=== PATIENT | male | born 2000 | race Caucasian/White ===

== ENCOUNTER 2021-02-20 14:54 | Emergency (ER) | payer BC ==
[2021-02-20] MEDS ORDERED: Sodium Chloride 0.9% 1000 ML 1,000 ML IV STA (15:25)
[2021-02-20] MEDS ORDERED: Sodium Chloride 0.9% 1000 ML 1,000 ML ONE (15:29)
[2021-02-20 15:39] LABS: Absolute Neutrophil Ct (ANC) 3.22 (1.4-6.9); BASOPHIL % 0.2 % (0.0-0.4); Basophil (Absolute #) 0.01 (0-0.4); Eosinophil (Absolute #) 0.06 (0-0.5); Hematocrit 40.8 % (42-50); Hemoglobin 13.3 gm/dl (12.5-18.0); Lymphocyte (Absolute #) 1.86 (1.0-4.6); Lymphocytes % 32.5 % (24.0-44.0); Mean Cell Volume 90.3 fl (78-100); Mean Corpuscular Hemoglobin 29.4 pg (26-32); Mean Corpuscular Hgb Concent. 32.6 g/dl (32-36); Monocyte (Absolute #) 0.57 (0.0-1.3); Neutrophil % 56.3 % (36.0-66.0); Platelet Count 174 K/mm3 (150-450); Red Blood Count 4.52 M/mm3 (4.1-5.6); Red Cell Distribution Width 12.9 % (11.5-14.0); White Blood Count 5.7 K/mm3 (4.0-10.5)
[2021-02-20 15:58] LABS: ALBUMIN 4.8 g/dL (3.5-5.0); ALKALINE PHOSPHATASE 41 U/L (38-126); ANION GAP 14.4 MEQ/L (5-15); BLOOD UREA NITROGEN 17 mg/dL (9-20); CHLORIDE 101 mmol/L (98-107); Calcium 9.5 mg/dL (8.4-10.2); Carbon Dioxide 27 mmol/L (22-30); Creatinine 1 1.14 mg/dL (0.66-1.25); EST GLOMERULAR FILTRATION RATE > 60.0 ML/MIN; Glucose 97 mg/dL (74-106); MAGNESIUM 2.1 mg/dL (1.6-2.3); Potassium 4.1 mmol/L (3.5-5.1); SGOT/AST 28 U/L (17-59); SGPT/ALT 16 U/L (0-50); SODIUM 138 mmol/L (137-145); Total Protein 7.1 g/dL (6.3-8.2)
--- NOTE | 2021-02-20 16:28 | XRAY ---
Indication: Lightheadedness. Comparison: October 12, 2015. Portable chest again demonstrates normal heart, lungs, and bony thorax.
--- NOTE | 2021-02-20 16:33 | ERPHSYRPT ---
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 states he has passed out once before in high school and it felt like this episode today. denies hx seizures. rates 1/10 CONNER now. reports he became sweaty and light headed at work, attempted to go inside and sit down, but began to black out and sat down on the ground. denies fall, hitting head, or LOC. Physician History: 20 years old healthy male presented in the ER with near syncope episode and mild headache. 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 Denies any chest pain palpitations or shortness of breath before or after. Denies any focal numbness tingling or weakness. Patient reports 1/10 minimal headache and feeling of mild generalized weakness and fatigue. Reports keeping up with hydration. Does report having similar episode few years ago. Denies any drug use. No sick contact. No vomiting or diarrhea reported Timing/Duration: today, resolved prior to arrival, improved Severity: moderate Modifying Factors: Improves With: rest Associated Symptoms: headaches Allergies/Adverse Reactions: No Known Drug Allergies Allergy (Unverified 02/20/21 15:09) Home Medications: No Reportable Medications [No Reported Medications] 02/20/21 [History] Hx Tetanus, Diphtheria Vaccination/Date Given: Yes Hx Influenza Vaccination/Date Given: Yes Hx Pneumococcal Vaccination/Date Given: No Immunizations Up to Date: Yes Travel Risk - International Travel Have you traveled outside of the country in past 3 weeks: No - Coronavirus Screening Are you exhibiting any of the following symptoms?: Yes Symptoms: Headaches/Body Aches/Fatigue Close contact with a COVID-19 positive Pt in past 14-21 Days: No - Vaccine Status Have you recieved a Covid-19 vaccination: No - Review of Systems Constitutional: Fatigue, Weakness Eyes: No Symptoms Ears, Nose, & Throat: No Symptoms Respiratory: No Symptoms Cardiac: No Symptoms Abdominal/Gastrointestinal: No Symptoms Genitourinary Symptoms: No Symptoms Musculoskeletal: No Symptoms Skin: No Symptoms Neurological: Dizziness, Headache Psychological: No Symptoms Endocrine: No Symptoms Hematologic/Lymphatic: No Symptoms Immunological/Allergic: No Symptoms - Past Medical History Pertinent Past Medical History: No Other Medical History: heart murmur as child - Past Surgical History Past Surgical History: No - Social History Smoking Status: Never smoker Exposure to second hand smoke: No Drug Use: none Patient Lives Alone: No - Nursing Vital Signs Nursing Vital Signs: Initial Vital Signs Temperature 97.0 F 02/20/21 15:02 Pulse Rate 79 02/20/21 15:02 Respiratory Rate 18 02/20/21 15:02 Blood Pressure 118/76 02/20/21 15:02 O2 Sat by Pulse Oximetry 98 02/20/21 15:02 Pain Scale Pain Intensity 0 - Physical Exam General Appearance: no apparent distress, alert Eye Exam: PERRL/EOMI, eyes nml inspection Ears, Nose, Throat Exam: normal ENT inspection, TMs normal, pharynx normal Neck Exam: normal inspection, non-tender, supple, full range of motion Respiratory Exam: normal breath sounds, lungs clear Cardiovascular Exam: regular rate/rhythm, normal heart sounds Gastrointestinal/Abdomen Exam: soft, normal bowel sounds, No tenderness Back Exam: normal inspection, normal range of motion, No CVA tenderness Extremity Exam: normal inspection, normal range of motion Neurologic Exam: alert, oriented x 3, cooperative, 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 tested, normal mood/affect, nml cerebellar function, nml station & gait, sensation nml, No motor deficits, No sensory deficit Skin Exam: normal color SpO2 Interpretation: normal SpO2: 99 O2 Delivery: Room Air - Course EKG Interpreted by Me: RATE (69), Sinus Rhythm, NORMAL AXIS ( okay alright hello yeah), NORMAL INTERVALS, NORMAL QRS Ordered Tests: Medication Summary Discontinued Medications Generic Name Dose Route Start Last Admin Trade Name Freq PRN Reason Stop Dose Admin Sodium Chloride 1,000 mls @ 999 mls/hr 02/20/21 15:25 02/20/21 16:33 Sodium Chloride 0.9% 1000 Ml IV 02/20/21 16:25 Infused .Q1H1M STA Infusion Sodium Chloride Confirm 02/20/21 15:29 Sodium Chloride 0.9% 1000 Ml Administered 02/20/21 15:30 Dose 1,000 mls @ ud .ROUTE .STK-MED ONE Lab/Rad Data: Laboratory Result Diagrams 02/20/21 15:15 02/20/21 15:15 Laboratory Results 02/20/21 02/20/21 02/20/21 Range/Units 15:33 15:17 15:15 WBC (4.0-10.5) K/mm3 RBC (4.1-5.6) M/mm3 Hgb (12.5-18.0) gm/dl Hct (42-50) % MCV (78-100) fl MCH (26-32) pg MCHC (32-36) g/dl RDW (11.5-14.0) % Plt Count (150-450) K/mm3 MPV (7.5-11.0) fl Gran % (36.0-66.0) % Eos # (Auto) (0-0.5) Absolute Lymphs (auto) (1.0-4.6) Absolute Monos (auto) (0.0-1.3) Lymphocytes % (24.0-44.0) % Monocytes % (0.0-12.0) % Eosinophils % (0.00-5.0) % Basophils % (0.0-0.4) % Absolute Granulocytes (1.4-6.9) Basophils # (0-0.4) Sodium (137-145) mmol/L Potassium (3.5-5.1) mmol/L Chloride (98-107) mmol/L Carbon Dioxide (22-30) mmol/L Anion Gap (5-15) MEQ/L BUN (9-20) mg/dL Creatinine (0.66-1.25) mg/dL Estimated GFR ML/MIN Glucose (74-106) mg/dL POC Glucometer 93 (74 to 106) mg/dL Lactic Acid 1.2 (0.4-2.0) Calcium (8.4-10.2) mg/dL Magnesium (1.6-2.3) mg/dL Total Bilirubin (0.2-1.3) mg/dL AST (17-59) U/L ALT (0-50) U/L Alkaline Phosphatase (38-126) U/L Troponin I < 0.012 (0.000-0.034) ng/mL Serum Total Protein (6.3-8.2) g/dL Albumin (3.5-5.0) g/dL 02/20/21 02/20/21 Range/Units 15:15 15:15 WBC 5.7 (4.0-10.5) K/mm3 RBC 4.52 (4.1-5.6) M/mm3 Hgb 13.3 (12.5-18.0) gm/dl Hct 40.8 L (42-50) % MCV 90.3 (78-100) fl MCH 29.4 (26-32) pg MCHC 32.6 (32-36) g/dl RDW 12.9 (11.5-14.0) % Plt Count 174 (150-450) K/mm3 MPV 11.0 (7.5-11.0) fl Gran % 56.3 (36.0-66.0) % Eos # (Auto) 0.06 (0-0.5) Absolute Lymphs (auto) 1.86 (1.0-4.6) Absolute Monos (auto) 0.57 (0.0-1.3) Lymphocytes % 32.5 (24.0-44.0) % Monocytes % 10.0 (0.0-12.0) % Eosinophils % 1.0 (0.00-5.0) % Basophils % 0.2 (0.0-0.4) % Absolute Granulocytes 3.22 (1.4-6.9) Basophils # 0.01 (0-0.4) Sodium 138 (137-145) mmol/L Potassium 4.1 (3.5-5.1) mmol/L Chloride 101 (98-107) mmol/L Carbon Dioxide 27 (22-30) mmol/L Anion Gap 14.4 (5-15) MEQ/L BUN 17 (9-20) mg/dL Creatinine 1.14 (0.66-1.25) mg/dL Estimated GFR > 60.0 ML/MIN Glucose 97 (74-106) mg/dL POC Glucometer (74 to 106) mg/dL Lactic Acid (0.4-2.0) Calcium 9.5 (8.4-10.2) mg/dL Magnesium 2.1 (1.6-2.3) mg/dL Total Bilirubin 0.60 (0.2-1.3) mg/dL AST 28 (17-59) U/L ALT 16 (0-50) U/L Alkaline Phosphatase 41 (38-126) U/L Troponin I (0.000-0.034) ng/mL Serum Total Protein 7.1 (6.3-8.2) g/dL Albumin 4.8 (3.5-5.0) g/dL - Progress Progress: improved, re-examined Progress Note: 02/20/21 17:01 Patient remained asymptomatic throughout stay in the ER with nonfocal neuro exam. Negative work-up including EKG, troponins. Chest x-ray negative for any acute cardiopulmonary findings. No acute electrolyte derangements. Given fluid bolus, feeling better on reevaluation back to his normal. I believe patient symptoms are consistent with vasovagal near syncopal episode. Recommended hydration and outpatient follow-up. Discussed signs symptoms of worsening needing return to ER which he seems understanding. I do not think he needs a CT imaging of his head or any other neuro work-up. Counseled pt/family regarding: lab results, diagnosis, need for follow-up, rad results - Departure Departure Disposition: Home Clinical Impression: Vasovagal near syncope Condition: Stable Critical Care Time: No Referrals: RACHAEL FLORES NP [Primary Care Provider] - (1-2 days for reevaluation) Instructions: Headache, Adult (DC), Near Fainting (DC) Additional Instructions: Drink plenty of fluids. Stay in a cool place. Follow-up with primary care physician for reevaluation. Return to ER for worsening symptoms of lightheadedness or feeling as if you going to pass out, chest pain palpitations or shortness of breath.
[2021-02-20 17:13] VITALS: BP 116/73; PULSE 80
[2021-02-22 07:44] VITALS: O2SAT 99
== END 2021-02-20 17:26 | disposition home or self-care (01) ==
LOC: ED 14:54
DX: R55 Syncope and collapse (principal)
CPT/HCPCS: 36000; 36415; 71045; 80053; 82947; 83605; 83735; 84484; 85025; 93005; 93041; 96360; 99284